=== PATIENT | male | born 1960 | race African-American/Black ===

== ENCOUNTER 2022-10-16 16:41 | Inpatient (IN) | payer OTHER ==
[2022-10-16 17:22] VITALS: BMI 21.4
[2022-10-16] MEDS ORDERED: LOPERAMIDE HCL 2 MG CAPSULE PO PRN (18:47)
[2022-10-16] MEDS ORDERED: ONDANSETRON *ODT* 4 MG TABLET SL PRN (18:47)
[2022-10-16] MEDS ORDERED: P-EPHED 60MG/TRIPROLIDI 2.5MG TABLET PO PRN (18:47)
[2022-10-16] MEDS ORDERED: MAG HYDROX/AL HYDROX/SIMETH 30 ML UNIT-DOSE CUP PO PRN (18:47)
[2022-10-16] MEDS ORDERED: IBUPROFEN 400 MG TABLET (FP) PO PRN (18:47)
[2022-10-16] MEDS ORDERED: DICYCLOMINE HCL 10 MG CAPSULE PO PRN (18:47)
[2022-10-16] MEDS ORDERED: guaiFENesin 600 MG TABLET.ER (FP) PO PRN (18:47)
[2022-10-16] MEDS ORDERED: NALOXONE HCL 0.4 MG/ML VIAL IM PRN (18:47)
[2022-10-16] MEDS ORDERED: BENZONATATE 200 MG CAPSULE PO PRN (18:47)
[2022-10-16] MEDS ORDERED: POLYETHYLENE GLYCOL (HEALTHYLAX) 3350 17 GM PACKET PO PRN (18:47)
[2022-10-16] MEDS ORDERED: NALOXONE HCL (KLOXXADO) 8 MG SPRAY NS PRN (18:47)
[2022-10-16] MEDS ORDERED: BENZOCAINE/MENTHOL (CHLORASEPTIC ) LOZENGE MM PRN (18:47)
[2022-10-16] MEDS ORDERED: NICOTINE POLACRILEX 2 MG GUM BUC PRN (18:47)
[2022-10-16] MEDS ORDERED: MAGNESIUM HYDROX 2400MG/30ML ORAL SUSPENSION 30 ML CUP PO PRN (18:47)
[2022-10-16] MEDS ORDERED: ACETAMINOPHEN 325 MG TABLET (FP) PO PRN (18:47)
[2022-10-16] MEDS ORDERED: IBUPROFEN 600 MG TABLET (FP) PO PRN (18:47)
[2022-10-16] MEDS ORDERED: BISMUTH SUBSALICYLATE 524 MG/30 ML PO PRN (18:47)
[2022-10-16] MEDS ORDERED: cloNIDine HCL 0.1 MG TABLET PO PRN (18:49)
[2022-10-16] MEDS: MELATONIN 5 MG TABLETS PO PRN (21:19)
[2022-10-16] MEDS: hydrOXYzine PAMOATE 25 MG CAPSULE (FP) PO PRN (21:20)
[2022-10-16] MEDS: THIAMINE HCL 100 MG TABLET (FP) PO SCH (21:20)
[2022-10-16] MEDS ORDERED: methaDONE HCL 10 MG TABLET (FOR DETOX USE ONLY) PO ONE (22:00)
[2022-10-17] MEDS: PRENATAL VITAMINS W/ FOLIC ACID TABLET (FP) PO SCH (10:25)
[2022-10-17 11:59] LABS: POTASSIUM 5.2 mmol/L (3.5-5.1)
[2022-10-17 12:00] LABS: HEMATOCRIT 36.4 % (35.4-49); HEMOGLOBIN 12.4 GM/dL (11.7-16.9); MCH 30.5 pg (25.7-33.7); MEAN CELL VOLUME 89.8 fl (80-96); MEAN PLT VOLUME 10.5 fl (7.5-11.1); PLATELET COUNT 179 10^3/uL (134-434); RBC 4.05 M/mm3 (4.00-5.60); RDW 13.7 % (11.9-15.9); WHITE BLOOD COUNT 4.8 K/mm3 (4.0-10.0)
[2022-10-17 12:05] LABS: BLOOD UREA NITROGEN 16.4 mg/dL (7-18); CALCIUM 9.9 mg/dL (8.5-10.1)
[2022-10-17 12:06] LABS: ALBUMIN 3.5 g/dl (3.4-5.0)
[2022-10-17 12:10] LABS: BILIRUBIN,TOTAL 0.4 mg/dL (0.2-1); TOT PROT 6.1 g/dl (6.4-8.2)
[2022-10-17] MEDS: diazePAM 5 MG TABLET PO PRN ×2 (17:22→22:36)
[2022-10-17] MEDS: THIAMINE HCL 100 MG TABLET (FP) PO SCH (22:35)
[2022-10-17] MEDS: QUEtiapine FUMARATE 50 MG TABLET PO SCH (22:35)
[2022-10-17] MEDS: MELATONIN 5 MG TABLETS PO PRN (22:35)
[2022-10-18] MEDS ORDERED: methaDONE HCL 10 MG TABLET (FOR DETOX USE ONLY) PO ONE (10:00)
[2022-10-18] MEDS: PRENATAL VITAMINS W/ FOLIC ACID TABLET (FP) PO SCH (10:11)
[2022-10-18] MEDS: QUEtiapine FUMARATE 50 MG TABLET PO SCH (22:16)
[2022-10-18] MEDS: MELATONIN 5 MG TABLETS PO PRN (22:17)
[2022-10-18] MEDS: THIAMINE HCL 100 MG TABLET (FP) PO SCH (22:17)
[2022-10-19] MEDS: PRENATAL VITAMINS W/ FOLIC ACID TABLET (FP) PO SCH (09:41)
[2022-10-19] MEDS: hydrOXYzine PAMOATE 25 MG CAPSULE (FP) PO PRN (22:17)
[2022-10-19] MEDS: THIAMINE HCL 100 MG TABLET (FP) PO SCH (22:17)
[2022-10-19] MEDS: QUEtiapine FUMARATE 50 MG TABLET PO SCH (22:18)
[2022-10-19] MEDS: diazePAM 5 MG TABLET PO PRN (22:18)
[2022-10-20 06:29] VITALS: RESP 16
[2022-10-20 09:34] VITALS: BP 131/94; PULSE 76; TEMP 97.3
[2022-10-20] MEDS: PRENATAL VITAMINS W/ FOLIC ACID TABLET (FP) PO SCH (09:37)
[2022-10-20] MEDS ORDERED: methaDONE HCL 10 MG TABLET (FOR DETOX USE ONLY) PO ONE (10:00)
== END 2022-10-20 10:24 | disposition home or self-care (01) | DRG 773 ==
LOC: YASAS 16:41 → Y3N 19:40
PROVIDERS: ADMIT Allergy & Immunology; ATTEND Surgery
PROC: HZ2ZZZZ Detoxification Services for Substance Abuse Treatment (ICD-10-PCS; principal; 2022-10-16)
DX: F11.23 Opioid dependence with withdrawal (principal); F14.20 Cocaine dependence, uncomplicated; F17.210 Nicotine dependence, cigarettes, uncomplicated; F20.9 Schizophrenia, unspecified
CPT/HCPCS: 36415; 80053; 84132; 85027; 86780; 87635; 87811